=== PATIENT | female | born 1995 | race Two or more races ===

== ENCOUNTER 2024-02-18 13:26 | Emergency (ER) | payer MEDICAID ==
[~2024-02-18] VITALS: Ht 160 cm; Wt 77.3 kg
[2024-02-18 13:29] VITALS: TEMP 98.9
[2024-02-18] MEDS ORDERED: IOHEXOL 350 MG/ML 100 ML VIAL ONE ×2 (13:46→15:56)
[2024-02-18] MEDS ORDERED: SODIUM CHLORIDE 0.9% 100 ML ONE (13:46)
[2024-02-18] MEDS: SODIUM CHLORIDE 0.9% 1,000 ML IV ONE (13:55)
[2024-02-18] MEDS: MORPHINE SULFATE 2 MG/ML SYRINGE IVP ONE (13:55)
[2024-02-18] MEDS: KETOROLAC TROMETHAMINE 30 MG/ML VIAL IVP ONE (13:55)
[2024-02-18] MEDS: ONDANSETRON HCL 4 MG/2 ML VIAL IVP ONE (13:56)
[2024-02-18] MEDS: FAMOTIDINE 20 MG/2 ML VIAL IVP ONE (13:57)
[2024-02-18 14:53] LABS: EOSINOPHILS % (AUTO) 0.2 % (1.0-6.0); HEMATOCRIT 27.5 % (36-46); HEMOGLOBIN 8.1 g/dL (12.0-16.0); LYMPHOCYTES # (AUTO) 1.8 K/uL (1.0-4.8); LYMPHOCYTES % (AUTO) 38.4 % (22.0-44.0); MEAN CORPUSCULAR HEMOGLOBIN 19.4 pg (26.0-34.0); MEAN CORPUSCULAR HGB CONC 29.5 G/dL (31.0-37.0); MEAN CORPUSCULAR VOLUME 66 fL (80-100); MONOCYTES # (AUTO) 0.5 K/uL (0.1-1.0); MONOCYTES % (AUTO) 9.9 % (2.0-9.0); NEUTROPHILS # (AUTO) 2.4 K/uL (1.8-7.7); NEUTROPHILS % (AUTO) 50.5 % (40.0-70.0); PLATELET COUNT (AUTO) 547 K/uL (150-450); RED BLOOD CELL COUNT(AUTO) 4.18 MIL/uL (4.00-5.20); RED CELL DISTRIBUTION WIDTH 17.5 % (11.5-14.5); WHITE BLOOD COUNT (AUTO) 4.7 K/uL (4.5-11.0)
[2024-02-18 14:58] LABS: ANION GAP 11 mmol/L (8-16); CARBON DIOXIDE 22 mmol/L (22-29); CHLORIDE 102 mmol/L (98-107); CREATININE 0.85 mg/dL (0.60-1.30); GLOMERULAR FILTR. RATE CALC > 60 mL/min (>60); GLUCOSE,RANDOM 106 mg/dL (70-110); POTASSIUM 3.1 mmol/L (3.5-5.1); SODIUM SERUM 135 mmol/L (136-145); UREA NITROGEN, BLOOD 3 mg/dL (7-18)
[2024-02-18 15:03] LABS: ALANINE AMINOTRANSFERASE 18 U/L (12-78); ALBUMIN 3.6 g/dL (3.4-5.0); ALKALINE PHOSPHATASE 36 U/L (46-116); ASPARTATE AMINOTRANSFERASE 33 U/L (15-37); BILIRUBIN,TOTAL 0.2 mg/dL (0.1-1.0); LIPASE 26 U/L (16-77); TOTAL PROTEIN, SERUM 7.8 g/dL (6.4-8.2)
[2024-02-18 15:13] LABS: APPEARANCE,URINE CLEAR (CLEAR); BILIRUBIN,URINE NEGATIVE (NEGATIVE); COLOR,URINE LIGHT YELLOW (YELLOW); GLUCOSE, URINE (UA) NEGATIVE (NEGATIVE); KETONES,URINE NEGATIVE (NEGATIVE); LEUKOCYTE ESTERASE ,URINE SMALL (NEGATIVE); NITRATE,URINE NEGATIVE (NEGATIVE); OCCULT BLOOD,URINE NEGATIVE (NEGATIVE); PH,URINE 5.5 (5.0-8.0); PROTEIN,URINE NEGATIVE (NEGATIVE); SPECIFIC GRAVITIY, URINE 1.007 (1.003-1.030); UROBILINOGEN,URINE <=1.0 mg/dL (<=1.0)
[2024-02-18] MEDS: POTASSIUM CHLORIDE 20 MEQ ER TABLET PO ONE (15:19)
[2024-02-18 15:21] LABS: RBC MORPHOLOGY COMMENT ABNORMAL RBC MORPH
[2024-02-18 15:22] LABS: ALCOHOL, URINE DRUG SCREEN POSITIVE (NEGATIVE); AMPHET/METH SCREEN,URINE NEGATIVE (NEGATIVE); BARBITURATE SCREEN, URINE NEGATIVE (NEGATIVE); BENZODIAZEPINES SCREEN,URINE NEGATIVE (NEGATIVE); CANNABINOID SCREEN,URINE NEGATIVE (NEGATIVE); COCAINE SCREEN,URINE NEGATIVE (NEGATIVE); METHADONE SCREEN, URINE NEGATIVE (NEGATIVE); OPIATE SCREEN,URINE POSITIVE (NEGATIVE); PHENCYCLIDINE SCREEN,URINE NEGATIVE (NEGATIVE)
[2024-02-18 15:23] LABS: PH,URINE DRUG SCREEN 5.5 (5.0-8.0)
[2024-02-18] MEDS: METOCLOPRAMIDE HCL 5 MG/ML 2 ML VIAL IVP ONE (15:33)
[2024-02-18] MEDS: DiphenhydrAMINE HCL 50 MG/ML VIAL IVP ONE (15:34)
[2024-02-18 15:39] LABS: BACTERIA,URINE None Seen /HPF (None Seen); RBC,URINE None Seen /HPF (0-2); SQUAMOUS EPITHELIAL CELL,UR Rare /LPF (None Seen); WBC,URINE 0-2 /HPF (0-5)
[2024-02-18 15:49] VITALS: BP 122/71; PULSE 84; RESP 18; O2SAT 97
[2024-02-18] MEDS ORDERED: ACET-3385 PO (16:36)
[2024-02-18] MEDS ORDERED: ONDA-104 PO (16:36)
== END 2024-02-18 17:30 | disposition home or self-care (01) ==
LOC: EMS 13:26
DX: K80.20 Calculus of gallbladder without cholecystitis without obstruction (principal); F10.90 Alcohol use, unspecified, uncomplicated; Z98.890 Other specified postprocedural states
CPT/HCPCS: 99285; 74177; 96375; 96374; 76705; 96361; 80048; 80076; 81001; 83690; 84703; 85025; 36415; 93005; 80307; G0480; Q9967; J1200; J3490; J1885; J2765; J2270; J2405; J7030; J7050